=== PATIENT | female | born 1990 | race Caucasian/White ===

== ENCOUNTER 2019-11-27 23:23 | Inpatient (IN) | payer OTHER ==
[~2019-11-27] VITALS: Ht 157.5 cm; Wt 85.5 kg
[2019-11-28] VITALS (25 sets, daily range): BP systolic 97–152; BP diastolic 55–90
[2019-11-28] MEDS ORDERED: LACTATED RINGER'S 1000 ML IV ONE (00:30)
[2019-11-28] MEDS ORDERED: LAMO200T3 PO (01:00)
[2019-11-28] MEDS ORDERED: PRENTAB9 PO (01:00)
[2019-11-28 01:03] LABS: HEMATOCRIT 42.5 % (36.0-47.0); HEMOGLOBIN 14.6 g/dl (12.0-15.5); MEAN CORPUSCULAR HEMOGLOBIN 31.7 pg (27.0-33.0); MEAN CORPUSCULAR HGB CONC 34.4 g/dl (32.0-36.5); MEAN CORPUSCULAR VOLUME 92.2 fl (80.0-96.0); PLATELET COUNT, AUTOMATED 189 10^3/uL (150-450); RED BLOOD COUNT 4.61 10^6/uL (4.00-5.40); WHITE BLOOD COUNT 9.1 10^3/uL (4.0-10.0)
[2019-11-28] MEDS ORDERED: PROMETHAZINE INJ 25 MG/ML VIAL (J2550) IV ONE (02:00)
[2019-11-28] MEDS ORDERED: BUTORPHANOL 2 MG/ML INJ (J0595) IV ONE (02:00)
[2019-11-28] MEDS: LR 1,000 ML IV SCH ×2 (02:07→06:20)
[2019-11-28] MEDS ORDERED: FENTANYL 2MCG/ML ROPIVACAINE 0.2% IN 0.9% NACL 100ML IVBAG As Ordered ONE (04:50)
[2019-11-28] MEDS ORDERED: diphenhydrAMINE 50MG/ML VIAL (J1200) IV PRN (05:25)
[2019-11-28] MEDS ORDERED: LACTATED RINGER'S 1000 ML IV PRN (05:25)
[2019-11-28] MEDS ORDERED: REFRIGERATOR IV KEYS XX PRN (05:25)
[2019-11-28] MEDS ORDERED: ePHEDrine SULFATE 25 MG/5 ML(5MG/ML) SYRINGE IV PRN (05:25)
[2019-11-28] MEDS ORDERED: ONDANSETRON 4MG/2ML VIAL IV PRN (05:25)
[2019-11-28] MEDS ORDERED: NALOXONE INJ 0.4MG/1ML VIAL (J2310 PER 1MG) IV PRN (05:25)
[2019-11-28] MEDS ORDERED: FENTANYL/ROPIVACAINE/NACL BAG 100 ML EPIDURAL SCH (05:25)
[2019-11-28] MEDS ORDERED: EPIDURAL COMMENT XX SCH (05:25)
[2019-11-28] MEDS ORDERED: EPIDURAL/PCA KEYS XX PRN (05:25)
[2019-11-28] MEDS ORDERED: lamoTRIgine 100MG TAB PO SCH (09:00)
--- NOTE | 2019-11-28 09:30 | IPNPDOC ---
Obstetrical Progress Note Date of Service November 28, 2019 Subjective Received report from Dr. Dawn during board sign out and assumed care of Angle, a 29yo , currently at 39+3 weeks gestation, admitted early this morning in early labor. She has received her epidural and is comfortable at this time, she denies any further pain. Her spouse is sleeping at the bedside. Her is complicated by Rh Negative blood (O negative), Anxiety, pseudos eizures (taking lamictal 200mg BID) and excessive weight gain. She is GBS Negative. Objective O: VSS, afebrile, normotensive FHR 130s, moderate variability, + accels, no decels noted CTX by TOCO: q2-4 minutes, moderate by palpation SVE: 5-6/90/-3, head well applied SROM at 0840, clear fluid Vital Signs Date Time Temp Pulse Resp B/P (MAP) Pulse Ox O2 Delivery O2 Flow Rate FiO2 11/28/19 07:36 73 18 100/58 (72) 11/28/19 04:20 97.6 11/28/19 02:13 98 Room Air Sterile Vaginal Examination Postion/Presentation: Cephalic presentation Assessment and Plan Status: Reassuring Group B Streptococcus: Negative Anticipate: Vaginal Delivery Additional Comments A: Angle is a 29yo at 39+3 weeks in active labor, Category I FHT, effective epidural in place. P: Expectant management CEFM x2 Close maternal/ monitoring Reassess in 4 hours or sooner, consider pitocin augmentation if needed Consult with OB as indicated Anticipate LAWSON ORTIZ CNM November 28, 2019 09:30
[2019-11-28] MEDS ORDERED: OXYTOCIN 30 UNITS IN 0.9% NaCl 500ML IV BAG (J2590) As Ordered ONE (10:45)
--- NOTE | 2019-11-28 11:14 | IPNPDOC ---
Text Note Date of Service The patient was seen on 11/28/19. NOTE Late entry. S: In room for assessment as fetus noted to have prolonged deceleration starting at 1014. RN initially entered room for interventions (LR bolus and repositioned patient; fetus did respond, but continued to have decleration. I came into room to assess and assist with interventions. Cervical exam completed and cervix noted to be AL at 0 station. Fetus responded well to exam and to reposition to maternal left. O: VSS FHR 150s, moderate variability, no accels, prolonged, variable and early decels noted - tracing previous to prolonged deceleration, FHR was 130s, moderate variability with + accels, intermittent late, variable and early decelerations noted, not persistent. CTX q 2-4 minutes VE: AL/C/0 A: 29yo at 39+3wks, Category II FHT with interventions ongoing; Dr. Campbell aware of prolonged deceleration P: Continue to labor, plan to start pushing once cervix is fully dilated Continue interventions as necessary with Category II FHT Will consult with OB if indicated or needed for delivery assistance CEFM x2 Close monitoring of maternal/ status Anticipate VS,Fishbone, I+O VS, Fishbone, I+O Laboratory Tests 11/28/19 00:40 Vital Signs Date Time Temp Pulse Resp B/P (MAP) Pulse Ox O2 Delivery O2 Flow Rate FiO2 11/28/19 10:06 78 18 105/66 (79) 11/28/19 04:20 97.6 11/28/19 02:13 98 Room Air LAWSON ORTIZ CNM November 28, 2019 11:14
[2019-11-28] MEDS ORDERED: OXYTOCIN DRIP 30 UNITS in IV 1 EA IV SCH (14:10)
[2019-11-28] MEDS ORDERED: ACETAMINOPHEN TAB 650MG DOSE (2X325MG) PO PRN (14:15)
[2019-11-28] MEDS ORDERED: IBUPROFEN 600 MG TAB PO PRN (14:15)
[2019-11-28] MEDS ORDERED: RHOGAM 300 MCG (1500 IU) INJ (J2790) IM SCH (14:15)
[2019-11-28] MEDS ORDERED: MEASLES,MUMPS,RUBELLA VACCINE INJ (MMR-II) (90707) SC SCH (14:15)
--- NOTE | 2019-11-28 14:20 | IPNPDOC ---
Text Note Date of Service The patient was seen on 11/28/19. NOTE Called to assist with perineal repair Kamlesh is a 29yo [id number] s/p uncomplicated delivery (attended by ALIDA Marshall) at 39w3d after presenting in active labor. Placenta was being delivered as I entered the room. On inspection, patient had a 3(c)mll. I repaired the external anal sphincter in overlapping fashion using 0-vicryl suture in 4 separate interrupted sutures: deep, superior, inferior then more superficial. At that point, I then assisted ALIDA Marshall in repairing the remaining 2mll in routine fashion using 3-0 vicryl with excellent reapproximation and total hemostasis. Please see her delivery note for further details. Mom and baby were doing well when I left the room. Dr. Nydia Campbell MD VS,Marck, I+O VS, Marck I+O Laboratory Tests 11/28/19 00:40 Vital Signs Date Time Temp Pulse Resp B/P (MAP) Pulse Ox O2 Delivery O2 Flow Rate FiO2 11/28/19 13:55 98.8 78 18 131/76 (94) 11/28/19 02:13 98 Room Air Nydia Campbell MD November 28, 2019 14:20
--- NOTE | 2019-11-28 14:40 | DNPDOC ---
[facility] Delivery Note Delivery Note DATE OF DELIVERY: November 28, 2019 at 1306. PREDELIVERY DIAGNOSIS: 39+3 weeks gestation and labor. POST DELIVERY DIAGNOSIS: Delivered. PROCEDURE: CASTER HELPER: ALIDA Ortiz ANESTHESIA: Eipdural ESTIMATED BLOOD LOSS: 200mL FINDINGS: 7 pound 5 ounce (3330g) male , Score 9/9, nuchal cord times x2, tight. DELIVERY SUMMARY: Angle is a 29yo G2 now P1011 at 39+3wks gestation who was admitted in early labor and progressed spontaneously to C/C/+2 with continuous pressure. Pt effectively pushed to deliver a viable male infant over a protected perineum. Once the head began to crown, pt was unable to stop controlled push until head was delivered. head delivered MARITZA and restituted to ROT; tight nuchal noted and unable to reduce at this time. Left anterior shoulder delivered with ease, followed by right posterior shoulder, then remainder of corpus delivered and nuchal cord X2 reduced via somersault at the perineum. Infant had a strong, lusty cry and was placed on maternal abdomen. Once cord stopped pulsing, clamped x2 and cut by patient; cord blood collected for type. Placenta delivered spontaneously and appeared intact, 3VC, pitocin bolus started. Fundus firm, EBL 200mL. Upon inspection of vagina, perineum, and cervix, and 3rd degree MLL noted; Dr. Campbell notified and requested to come in to assist with repair (see separate note). Patient tolerated repair well. Family Bonding well, anticipate uncomplicated PP course. LAWSON ORTIZ CNM November 28, 2019 14:40
--- NOTE | 2019-11-28 15:04 | HPE ---
DATE OF ADMISSION: 11/28/2019 This 29-year-old, 2, para 0, abort 1, last menstrual period (LMP) 03/04/2019, estimated date of confinement (EDC) 12/02/2019, at 39 and 4 weeks of gestation, history of contractions and bloody show. She was 1 cm when examined on Sunday. RISK FACTORS: She has anxiety, pseudoseizures, panic attacks, and fibroid uterus. She takes Lamictal 200 mg twice a day. PAST HISTORY: In 2010, at 9 weeks, spontaneous . Labs are O negative, HIV negative, RPR negative, rubella immune. Varicella immune. Pap normal. Urine negative. Gonorrhea and chlamydia are negative. 1-hour glucose 121. GBS is negative. Blood pressure 134/86, respirations 18, pulse 78, and temperature 97.8. Urine is 1.020, pH 6 and negative. On examination, she appears distressed. Symphysis fundus height is 40, vertex OA. Four quadrant bowel sounds are noted. She is very stretchy 3-4 cm, 80% effaced and -3 station with bulging membranes. The rest the examination is unremarkable. She is normocephalic, atraumatic. Neck full range of motion. Pupils equal and reactive to light. Distal pulses are symmetric. No evidence of deep venous thrombosis (DVT), pulmonary embolism (PE) or superficial phlebitis. Chest is clear bilaterally bases. No wheezes or rhonchi. No costovertebral angle (CVA) tenderness. Abdomen is soft, four quadrant bowel sounds are noted. Appropriate symphysis fundus height and a category 1 strip. She has no rashes, lesions or pruritus. No arthralgia or myalgia. No complaint of joint pain. No complaint cough, wheeze, shortness of breath, or dyspnea on exertion. No bleeding. Neuro complete. She has no incontinency or frequency. No nausea, vomiting, diarrhea or constipation. No diabetic issues, and no heat or cold insensitivity. GYNECOLOGY (REPA[employer]ER [employer]) HISTORY: Unremarkable. Pap smear is normal. PAST MEDICAL HISTORY: She has pseudoseizures, panic attacks, anxiety, is on Lamictal. Her family history is noncontributory. She does not smoke, drink, abuse drugs. She is . No domestic violence. She has a whole list of medical ALLERGIES including CODEINE, LATEX, OXYCODONE, PROMETHAZINE, and TETRACYCLINE. Our plan of management is to hydrate the patient, epidural as needed, probably an artifical rupture of membranes (AROM) after the epidural and we anticipate progress to delivery. We discussed the consent for vaginal delivery, which is the vagina, possibly use of forceps or vacuum devices, if needed for maternal and indications forceps or vacuum device can assist with vaginal delivery when normal pushing efforts cannot achieve delivery on their own or when delivery is needed in an emergency for baby's well-being. Medications may be required to induce or augment labor, in order achieve vaginal delivery an episiotomy may be required to help baby deliver vaginally, you may also require repair of any lacerations or tears to the vagina or vulva that are caused by delivery, in some cases emergencies can arise to require emergency section so quickly that consent may not be signed, however the provider will discuss the reasons for the emergency section, which is delivery through incision on your abdomen, in some situations section may be safer for the mother and baby than continuing labor and only performed if clinical indications. Risks of vaginal delivery include not limited to bleeding, infection, injury to the vagina, pelvic structures, injury to baby, damage to the uterus, reaction to anesthesia, uterine rupture, risk of hysterectomy for life threatening, bleeding issues or even . Medications used to use to induce or augment labor may increase risk of infection, uterine tachysystole, uterine rupture, heart rate abnormalities, need for emergency section or possible hysterectomy and hemorrhage, additional heart rate abnormalities, need for emergency section, may be an increase in perineal and vaginal lacerations, risk of urinary and bowel incontinence, with use of forceps or vacuum include risk of scratches, hematomas of the head or intracranial bleed. The patient verbalized understanding, asked multiple questions regarding analgesics in labor and delivery, including doing nothing, using IV meds or epidural. The patient has expressed interest in an epidural at the appropriate interval. All questions were answered. 40 minute discussion.
[2019-11-28] MEDS: IBUPROFEN 800 MG TAB PO PRN (16:45)
[2019-11-28] MEDS: DIBUCAINE 1% OINTMENT 30GM TOP PRN (16:46)
[2019-11-28] MEDS: lamoTRIgine 100MG TAB PO SCH (21:42)
[2019-11-28] MEDS: DOCUSATE SODIUM 100 MG CAP PO PRN (21:42)
[2019-11-28] MEDS: ACETAMINOPHEN 500 MG TAB PO PRN (21:43)
[2019-11-29] MEDS: IBUPROFEN 800 MG TAB PO PRN ×2 (04:22→16:04)
[2019-11-29 06:00] VITALS: BP 131/79
[2019-11-29] MEDS: PRENATAL VITAMINS CHEWABLE TABLET PO SCH (09:49)
[2019-11-29] MEDS: lamoTRIgine 100MG TAB PO SCH ×2 (09:49→21:06)
--- NOTE | 2019-11-29 10:30 | IPNPDOC ---
Progress Note Date of Service: November 29, 2019 Day#: 1 Progress Note PPD 1 SUBJECT: Angle is a 29yo [id number] s/p uncomplicated after presenting in active labor at term, doing well day # 1. She had repair of 3mll after delivery. She has been ambulating, voiding spontaneously without issue and tolerating regular diet. Breast feeding without issue. Reports lochia is like a normal period. No f/c/n/v/CP/SOB. OBJECTIVE: VITAL SIGNS: Within normal limits, afebrile. Alert and oriented times three. Abdomen: Fundus firm at U-2. Soft, NTTP. Extremities: no pain with palpation of calves ASSESSMENT: Angle is a 29yo [id number] s/p uncomplicated after presenting in active labor at term, doing well day # 1. Vitals within normal limits, afebrile, hemodynamically stable with no evidence of infection. PLAN: 1. Routine care 2. Tylenol and Motrin for pain. 3. Encourage breast feeding and ambulation. 4. Undecided on contraception, will discuss at f/u visit 5. Regular diet 6. Possible discharge home tomorrow if meeting all criteria Dr. Nydia Campbell MD VS, I&O, 24H, Fishbone Vital Signs/I&O Vital Signs Date Time Temp Pulse Resp B/P (MAP) Pulse Ox O2 Delivery O2 Flow Rate FiO2 11/29/19 06:00 97.9 81 18 131/79 (96) 98 Room Air I&O- Last 24 Hours up to 6 AM 11/29/19 06:00 Intake Total 1800 ml Output Total 200 ml Balance 1600 ml Nydia Campbell MD November 29, 2019 10:30
[2019-11-29] MEDS: DIBUCAINE 1% OINTMENT 30GM TOP PRN (16:04)
[2019-11-29 18:04] VITALS: BP 122/58
[2019-11-29] MEDS: DOCUSATE SODIUM 100 MG CAP PO PRN (21:06)
[2019-11-29] MEDS: ACETAMINOPHEN 500 MG TAB PO PRN (21:07)
[2019-11-30 06:18] VITALS: BP 121/82
[2019-11-30] MEDS: lamoTRIgine 100MG TAB PO SCH (08:07)
[2019-11-30] MEDS: PRENATAL VITAMINS CHEWABLE TABLET PO SCH (08:07)
[2019-11-30] MEDS: IBUPROFEN 800 MG TAB PO PRN (08:08)
[2019-11-30] MEDS ORDERED: DOCU100C16 PO (09:09)
[2019-11-30] MEDS ORDERED: IBUP80TA PO (09:09)
[2019-11-30] MEDS ORDERED: DIBU10OI TOP (09:09)
[2019-11-30] MEDS ORDERED: ACET-683 PO (09:09)
--- NOTE | 2019-11-30 09:11 | DS.PDOC ---
Discharge Summary General Date of Admission November 28, 2019 at 00:12 Date of Discharge 11/30/2019 Discharge Summary PROCEDURES PERFORMED DURING STAY: None. ADMITTING DIAGNOSES: 1. Labor DISCHARGE DIAGNOSES: 1. Labor 2. 3rd Degree Laceration COMPLICATIONS/CHIEF COMPLAINT: Labor. HISTORY OF PRESENT ILLNESS: see H&P HOSPITAL COURSE: Patient admitted for labor and had c.b 3rd degree laceration repaired. Bleeding like menses. Tolerating diet. Passing flatus. Able to ambulate. Pain tolerable with pain medications. Urinating without difficulty. DISCHARGE MEDICATIONS: Please see below. ALLERGIES: Please see below. PHYSICAL EXAMINATION ON DISCHARGE: VITAL SIGNS: Please see below. GENERAL: No acute distress HEENT: MMM BREAST: Nontender, no erythema CARDIOVASCULAR EXAMINATION: RRR RESPIRATORY EXAMINATION: Bilaterally clear ABDOMINAL EXAMINATION: Soft, appropriate tenderness, nondistended, fundus -2 EXTREMITIES: no edema, nontender LABORATORY DATA: Please see below. IMAGING: none PROGNOSIS: Good ACTIVITY: Pelvic rest, no lifting >10lbs. DIET: Regular DISCHARGE PLAN: Home DISPOSITION: . DISCHARGE INSTRUCTIONS: 1. See attached. ITEMS TO FOLLOWUP ON ON OUTPATIENT: 1. 2wks in clinic. DISCHARGE CONDITION: Stable. TIME SPENT ON DISCHARGE: Greater than 10 minutes. Vital Signs/I&Os Vital Signs Date Time Temp Pulse Resp B/P (MAP) Pulse Ox O2 Delivery O2 Flow Rate FiO2 11/30/19 06:18 98.4 87 18 121/82 (95) 11/29/19 06:00 98 Room Air Discharge Medications Scheduled Lamotrigine (Lamotrigine) 200 Mg Tablet, 200 MG PO BID, (Reported) No.137/Iron/Folic Acd ( Vitamin Tablet) 1 Each Tablet, 1 TAB PO DAILY, (Reported) Scheduled PRN Acetaminophen (Acetaminophen) 500 Mg Tablet, 1,000 MG PO Q6HP PRN for PAIN LEVEL 6-10 Dibucaine (Dibucaine) 28 Gm Oint...g., 0 DOSE TOP Q4HP PRN for PAIN Docusate Sodium (Docusate Sodium) 100 Mg Capsule, 100 MG PO QHSP PRN for CONSTIPATION Ibuprofen (Ibuprofen) 800 Mg Tablet, 800 MG PO Q8HP PRN for PAIN LEVEL 6-10 Allergies Coded Allergies: Latex, Natural Rubber (Verified Allergy, Intermediate, 11/28/19) RASH codeine (Verified Allergy, Mild, 11/28/19) oxycodone (Verified Allergy, Mild, 11/28/19) tetracycline (Verified Allergy, Mild, 11/28/19) Elzbieta Parra MD November 30, 2019 09:11
--- NOTE | 2019-11-30 09:15 | IPNPDOC ---
Progress Note Date of Service: November 30, 2019 Day#: 2 Progress Note SUBJECT: Patient is a 29-year-old 2 now Para 1 status post spontaneous vaginal delivery c/b 3rd degree laceration and repair, doing well day # 2. She has been ambulating, voiding spontaneously without issue and tolerating regular diet. Difficulty with BF due to no colostrum and encouraged to supplement. Reports lochia is like a normal period. Patient is ambulating well. Reports some cramping with . Having typical perineal pain. OBJECTIVE: VITAL SIGNS: Within normal limits, afebrile. Alert and oriented times three. Breasts without masses or erythema Breath sounds clear to auscultation. Heart rate: Regular rate and rhythm, no murmurs, rubs or gallops. Abdomen: Fundus firm at U-2. Soft, NTTP. Perineum intact without edema, Minimal lochia. ASSESSMENT: Patient is a 29-year-old 2 now Para 1 status post spontaneous vaginal delivery c/b 3rd degree laceration and repair, doing well day # 2. Vitals within normal limits, afebrile, hemodynamically stable with no evidence of infection. PLAN: 1. Discharge to home today. 2. Tylenol and Motrin for pain. 3. Encourage supplementing and ambulation. 4. Routine PP visit in 2 weeks in clinic. 5. Discussed return precautions at length. VS, I&O, 24H, Fishbone Vital Signs/I&O Vital Signs Date Time Temp Pulse Resp B/P (MAP) Pulse Ox O2 Delivery O2 Flow Rate FiO2 11/30/19 06:18 98.4 87 18 121/82 (95) 11/29/19 06:00 98 Room Air Elzbieta Parra MD November 30, 2019 09:12
[2019-11-30] MEDS: ACETAMINOPHEN 500 MG TAB PO PRN (10:07)
--- NOTE | 2019-12-03 07:21 | IPN ---
DATE: 11/29/2019 This patient requested circumcision of her male . After discussing risks and benefits of circumcision, the medical to nonmedical indications, the penile block, and aftercare, she expressed understanding of penile block, aftercare. Signed the consent form. All questions were answered. 20-minute discussion. We await the clearance by the clean rice broker.
== END 2019-11-30 14:45 | disposition home or self-care (01) | DRG 768 ==
LOC: M LDO 23:23 → M LDI 11-28 00:12 → M OBS 11-28 16:18
PROVIDERS: ADMIT Obstetrics & Gynecology; ATTEND Registered Nurse Maternal Newborn
PROC: 10E0XZZ Delivery of Products of Conception, External Approach (ICD-10-PCS; principal; 2019-11-29)
PROC: 0DQR0ZZ Repair Anal Sphincter, Open Approach (ICD-10-PCS; 2019-11-29)
PROC: 0KQM0ZZ Repair Perineum Muscle, Open Approach (ICD-10-PCS; 2019-11-29)
DX: O99.344 Other mental disorders complicating childbirth (principal); Z37.0 Single live birth; O70.23 Third degree perineal laceration during delivery, IIIc; F41.0 Panic disorder [episodic paroxysmal anxiety]; Z3A.39 39 weeks gestation of pregnancy; O76 Abnormality in fetal heart rate and rhythm complicating labor and delivery; O69.1XX0 Labor and delivery complicated by cord around neck, with compression, not applicable or unspecified; O70.1 Second degree perineal laceration during delivery; Z79.899 Other long term (current) drug therapy; Z91.040 Latex allergy status; Z91.048 Other nonmedicinal substance allergy status; Z88.5 Allergy status to narcotic agent; Z88.1 Allergy status to other antibiotic agents